=== PATIENT | female | born 1990 | race Caucasian/White ===

== ENCOUNTER 2021-08-24 22:47 | Emergency (ER) | payer OTHER ==
--- NOTE | 2021-08-24 23:21 | NUR ---
CALLED IN LOBBY AND OUTSIDE WITH NO ANSWER.
--- NOTE | 2021-08-24 23:50 | NUR ---
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
== END 2021-08-24 23:50 | disposition left against medical advice (07) ==
LOC: MED 22:47
DX: O20.8 Other hemorrhage in early pregnancy (principal); Z3A.15 15 weeks gestation of pregnancy; Z53.21 Procedure and treatment not carried out due to patient leaving prior to being seen by health care provider